=== PATIENT | female | born 1985 | race Caucasian/White ===

== ENCOUNTER 2020-04-05 06:53 | Day surgery (SDC) | payer BC ==
[~2020-04-05] VITALS: Ht 157.5 cm; Wt 71.0 kg
[2020-04-05] MEDS ORDERED: LACTATED RINGERS 1,000 ML IV SCH (07:21)
[2020-04-05 07:27] VITALS: BP 149/87
[2020-04-05] MEDS ORDERED: CHLORHEXIDINE 15 ML UDC MM ONE (07:30)
[2020-04-05] MEDS ORDERED: PLEASE ENTER HEIGHT AND WEIGHT MC SCH (07:30)
[2020-04-05] MEDS ORDERED: GABAPENTIN 300 MG CAPSULE PO ONE (07:30)
[2020-04-05] MEDS ORDERED: ACETAMINOPHEN 500 MG TABLET PO ONE (07:30)
[2020-04-05] MEDS ORDERED: PLEASE ENTER ALLERGIES MC SCH (08:00)
[2020-04-05] MEDS ORDERED: FOLI200T13 PO (08:06)
[2020-04-05] MEDS ORDERED: CALC-112 PO (08:06)
[2020-04-05] MEDS ORDERED: ASCO60LO PO (08:06)
[2020-04-05] MEDS ORDERED: MIDAZOLAM 1 MG/ML, 2ML ONE (08:16)
[2020-04-05] MEDS ORDERED: FENTANYL PF 250 MCG/5ML ONE (08:16)
[2020-04-05 08:24] LABS: BASOPHILS # (AUTO) 0.04 x10^3/uL (0-0.1); BASOPHILS % (AUTO) 1 % (0-1); EOSINOPHILS # (AUTO) 0.09 x10^3/uL (0-0.4); EOSINOPHILS % (AUTO) 1 % (1-7); LYMPHOCYTES # (AUTO) 1.48 x10^3/uL (1-3.4); LYMPHOCYTES % (AUTO) 24 % (22-44); MD NO; MEAN CORPUSCULAR HEMOGLOBIN 29.9 pg (27.0-34.8); MEAN CORPUSCULAR HGB CONC 33.4 g/dL (32.4-35.8); MEAN CORPUSCULAR VOLUME 89.7 fL (80-100); MEAN PLATELET VOLUME 7.8 fL (7.4-10.4); MONOCYTES # (AUTO) 0.33 x10^3/uL (0.2-0.8); MONOCYTES % (AUTO) 5 % (2-9); NEUTROPHILS % (AUTO) 69 % (42-75); PLATELET COUNT 370 x10^3/uL (130-400); RED BLOOD COUNT 4.45 x10^6/uL (3.82-5.3); RED CELL DISTRIBUTION WIDTH 13.6 % (9.6-15.2)
[2020-04-05 08:35] LABS: MICROSCOPIC INDICATED
[2020-04-05] MEDS ORDERED: BUPIVACAINE/PF-EPI 0.25% 1:200K ONE (08:47)
[2020-04-05] MEDS ORDERED: SILVER NITRATE STICK TP ONE (08:47)
[2020-04-05 08:48] LABS: CULTURE INDICATED? NO
[2020-04-05] MEDS ORDERED: CEFAZOLIN 1,000 MG ONE (09:17)
[2020-04-05] MEDS ORDERED: ROCURONIUM 10 MG/ML,10ML ONE (09:17)
[2020-04-05] MEDS ORDERED: SUCCINYLCHOLINE 20 MG/ML, 10ML ONE (09:17)
[2020-04-05] MEDS ORDERED: DEXAMETHASONE 4 MG/ML, 1ML ONE (09:17)
[2020-04-05] MEDS ORDERED: ONDANSETRON 2MG/ML, 2ML ONE (09:17)
[2020-04-05] MEDS ORDERED: PROPOFOL 10 MG/ML, 20ML ONE (09:17)
[2020-04-05] MEDS ORDERED: PROMETHAZINE 25 MG/ML, 1ML IV PRN (10:00)
[2020-04-05] MEDS ORDERED: METOCLOPRAMIDE 5 MG/ML, 2ML IV PRN (10:00)
[2020-04-05] MEDS ORDERED: DIAZEPAM 5 MG/ML, 2ML IV PRN ×2 (10:00)
[2020-04-05] MEDS ORDERED: ALBUTEROL SULFATE 2.5 MG/3 ML NPPB PRN (10:00)
[2020-04-05] MEDS ORDERED: LABETALOL 5MG/ML, 20ML IV PRN (10:00)
[2020-04-05] MEDS ORDERED: OXYcodone 5 MG/5 ML ORAL.SOL UDC PO PRN (10:00)
[2020-04-05] MEDS ORDERED: HYDROmorphone 1 MG/ML, 1ML INJ IV PRN (10:00)
[2020-04-05] MEDS ORDERED: hydrALAzine 20 MG/ML, 1ML IV PRN (10:00)
[2020-04-05] MEDS ORDERED: FENTANYL PF 100 MCG/2ML IV PRN (10:00)
[2020-04-05] MEDS ORDERED: ONDANSETRON 2MG/ML, 2ML IVPush PRN (10:00)
[2020-04-05] MEDS ORDERED: KETOROLAC 30 MG/1 ML IV PRN (10:00)
[2020-04-05] MEDS ORDERED: PROMETHAZINE 25 MG/ML, 1ML ONE (10:53)
[2020-04-05] MEDS ORDERED: MEPERIDINE/PF 50 MG/ML ONE (10:53)
[2020-04-05] MEDS: MEPERIDINE/PF 25MG/0.5ML IVPush PRN ×2 (10:54→11:10)
== END 2020-04-05 16:10 | disposition home or self-care (01) ==
LOC: OUT 06:53
PROVIDERS: ATTEND Obstetrics & Gynecology
DX: N92.0 Excessive and frequent menstruation with regular cycle (principal); N94.6 Dysmenorrhea, unspecified; N83.11 Corpus luteum cyst of right ovary; N73.6 Female pelvic peritoneal adhesions (postinfective); R10.2 Pelvic and perineal pain; Z79.899 Other long term (current) drug therapy; Z88.5 Allergy status to narcotic agent
CPT/HCPCS: 36415; 58563; 81001; 84702; 85025; 88305; J0330; J0690; J1100; J2175; J2250; J2405; J2550; J2704; J3010; J7120; U0001